=== PATIENT | male | born 1975 | race Two or more races ===

== ENCOUNTER 2025-08-18 11:07 | Outpatient (REF) | payer OTHER, SELFPAY ==
--- NOTE | 2025-08-18 11:11 | EMG_ITS ---
Chief complaint:? G56.01 Carpal tunnel syndrome, right upper limb Reason for referral: Evaluate for Carpal Tunnel Syndrome Referred by:? CLARA Martinez Procedure done:? Right upper extremity NCS/EMG [place] [id number] Right median and ulnar motor studies were performed. Right median and ulnar mixed sensory studies were performed. Right median and lateral antecubital brachial sensory and radial sensory study was performed. EMG needle examination was performed. Findings: Right median motor distal latencies was moderately prolonged. Right median mixed distal latencies was moderately prolonged with conduction velocities in 30s. Right ulnar motor study revealed moderate slowing across elbow. Impression: 1. [id number]-[id number] right median neuropathy across carpal tunnel 2. [id number] right ulnar neuropathy across cubital tunnel MTDD
== END 2025-08-18 11:08 | disposition home or self-care (01) ==
LOC: HO.NEURO 11:07
PROVIDERS: PCP Internal Medicine
DX: G56.01 Carpal tunnel syndrome, right upper limb (principal); G56.21 Lesion of ulnar nerve, right upper limb
CPT/HCPCS: 95886; 95910

== ENCOUNTER → 2025-08-18 11:11 | Outpatient (BNV) | payer OTHER, SELFPAY | PROVIDERS: PCP Internal Medicine; Visit Provider Psychiatry & Neurology Neurology | DX: G56.03 Carpal tunnel syndrome, bilateral upper limbs (principal) | CPT/HCPCS: 95886; 95910 ==